=== PATIENT | female | born 1965 | race Caucasian/White ===

== ENCOUNTER 2019-02-16 07:16 | Emergency (ER) | payer MEDICARE, MEDICAID ==
[~2019-02-16] VITALS: Ht 167.6 cm; Wt 63.6 kg
[2019-02-16 07:22] VITALS: Ht 167.6 cm; Wt 63.6 kg
[2019-02-16] MEDS ORDERED: ABILIFY10 MG PO (07:25)
[2019-02-16] MEDS ORDERED: ALEVE220 MG PO (07:25)
[2019-02-16] MEDS ORDERED: LOPRESSOR25 MG PO (07:26)
[2019-02-16] MEDS ORDERED: DEPAKOTE ER500 MG PO (07:27)
[2019-02-16] MEDS ORDERED: ELIQUIS5 MG PO (07:27)
[2019-02-16] MEDS ORDERED: METOPROLOL TART25 MG PO (07:28)
[2019-02-16] MEDS ORDERED: TAPAZOLE 5 MG TA5 MG PO (07:30)
[2019-02-16 08:20] LABS: HEMATOCRIT 39.8 % (36.0-48.0); HEMOGLOBIN 13.6 g/dL (12-16); MCH 30.9 pg (26.0-34.0); MCHC 34.2 g/dL (31.0-37.0); MCV 90.5 fL (80.0-100.0); MEAN PLATELET VOLUME 11.3 fL (7.4-10.4); PLATELET COUNT 127 10x3/uL (130-400); RDW 12.1 % (11.5-14.5); WBC 4.6 10x3/uL (4.8-10.8)
[2019-02-16 08:21] LABS: UDS - AMPHET NEGATIVE QUAL (NEGATIVE); UDS - BARB NEGATIVE QUAL (NEGATIVE); UDS - BENZO NEGATIVE QUAL (NEGATIVE); UDS - COCAINE NEGATIVE QUAL (NEGATIVE); UDS - OPIATE NEGATIVE QUAL (NEGATIVE); UDS - PCP NEGATIVE QUAL (NEGATIVE); UDS - THC NEGATIVE QUAL (NEGATIVE)
[2019-02-16 08:36] LABS: APPEARANCE HAZY (CLEAR); COLOR YELLOW (YELLOW)
[2019-02-16 08:37] LABS: BACTERIA FEW /hpf (NEGATIVE); BILIRUBIN NEGATIVE (NEGATIVE); EPITHELIAL CELLS 0-5 /hpf (0-5); GLUCOSE NEGATIVE (NEGATIVE); HYALINE CAST RARE /lpf (NONE SEEN); KETONE NEGATIVE (NEGATIVE); MUCUS <1+ /lpf (NONE SEEN); NITRITE NEGATIVE (NEGATIVE); PROTEIN NEGATIVE (NEGATIVE); SPECIFIC GRAVITY 1.015 (1.005-1.020); WHITE CELLS - URINE 0-5 /hpf (NEGATIVE)
[2019-02-16 08:37] LABS: ALBUMIN 3.7 g/dL (3.4-5.0); ALKALINE PHOSPHATASE 82 U/L (46-116); ALT (SGPT) 19 U/L (10-68); BILIRUBIN - TOTAL 0.48 mg/dL (0.2-1.3); CALC OSMOLALITY 285 mosm/kg (275-300); CALCIUM 8.6 mg/dL (8.5-10.1); CARBON DIOXIDE 29.8 mmol/L (21.0-32.0); CHLORIDE - SERUM 107 mmol/L (98-107); CREATININE - SERUM 0.6 mg/dL (0.6-1.3); GLUCOSE 107 mg/dL (74-106); MAGNESIUM - SERUM 1.8 mg/dL (1.8-2.4); POTASSIUM - SERUM 3.7 mmol/L (3.5-5.1); PROTEIN - SERUM 7.4 g/dL (6.4-8.2); SODIUM 144 mmol/L (136-145); UREA NITROGEN 10 mg/dL (7-18); eGFR NON AFRICAN AMERICAN > 90 mL/min (90-120)
--- NOTE | 2019-02-16 08:51 | NUR ---
DR SCHMIDT NOTIFIED AND SITTER ORDERED. SITTER AT BEDSIDE. NOTIFIED CHARGE NURSE AND ATTENDING IN REGARDS TO ASSESSMENT FINDINGS. RESOURCES GIVEN TO PATIENT AND SAFETY PLAN INITIATED.
[2019-02-16 10:20] LABS: ANISOCYTOSIS OCC; LYMPHOCYTES 46 % (15-50); MONOCYTES 8 % (2-11); NEUTROPHILS 43 % (40-80); PLATELET ESTIMATE NORMAL; ROULEAUX OCC
[2019-02-16] MEDS ORDERED: KEFLEX500 MG PO (11:30)
[2019-02-16] MEDS ORDERED: MACROBID100 MG PO (11:30)
[2019-02-16 22:00] VITALS: BP 132/89
== END 2019-02-16 22:01 ==
LOC: D.ER 07:16
PROVIDERS: Family Medicine
DX: R45.851 Suicidal ideations (principal)